=== PATIENT | male | born 1955 | race Caucasian/White ===

== ENCOUNTER 2024-11-10 09:08 | Day surgery (SDC) | payer MEDICARE, OTHER ==
[~2024-11-10 09:08] MED LIST: Acetaminophen 325 MG Tab PO ONE; Lactated Ringers 1,000 ML ONE; Midazolam 1 MG/ML 2 ML SDV ONE; Pregabalin 25 MG Cap PO ONE; Sodium Chloride 0.9% 10 ML Syringe FLUSH PRN; Sodium Chloride 0.9% 10 ML Syringe FLUSH SCH; ceFAZolin 2 GM Vial ONE; oxyCODONE ER 10 MG TAB.ER PO ONE; propofoL 500 MG/50 ML 50 ML ONE
[2024-11-10] MEDS: VANCOmycin 1.25 GM/250 ML 1.25 GM in Premix Bag 1 BAG IV ONE (09:24)
[2024-11-10] MEDS: Lactated Ringers 1,000 ML IV SCH (09:40)
[2024-11-10] MEDS: Acetaminophen 325 MG Tab PO ONE (10:06)
[2024-11-10] MEDS: Pregabalin 25 MG Cap PO ONE (10:06)
[2024-11-10] MEDS: oxyCODONE ER 10 MG TAB.ER PO ONE (10:07)
[2024-11-10 10:11] LABS: INR 1.18; PROTHROMBIN TIME 12.4 SECONDS (9.7-12.0)
[2024-11-10 10:12] LABS: PTT,PARTIAL THROMBOPLSTIN TIME 36.9 SECONDS (21.7-31.4)
[2024-11-10] MEDS ORDERED: Rocuronium 50 MG/5 ML Vial ONE (11:07)
[2024-11-10] MEDS ORDERED: fentaNYL 250 MCG/5 ML SDV ONE (11:07)
[2024-11-10] MEDS ORDERED: dexmedeTOMIDine HCl 200 MCG/2 ML SDV ONE (11:19)
[2024-11-10] MEDS ORDERED: Dexamethasone 4 MG/ML 5 ML MDV ONE (11:42)
[2024-11-10] MEDS ORDERED: Ondansetron 4 MG/2 ML SDV ONE (11:42)
[2024-11-10] MEDS ORDERED: Ketorolac 30 MG/ML SDV ONE (11:42)
[2024-11-10] MEDS ORDERED: ePHEDrine 50 MG/ML SDV ONE (11:42)
[2024-11-10] MEDS ORDERED: HYDROmorphone 0.5 MG/0.5 ML Syringe IVPUSH PRN (11:57)
[2024-11-10] MEDS ORDERED: fentaNYL 100 MCG/2 ML SDV IVPUSH PRN (11:57)
[2024-11-10] MEDS ORDERED: Sugammadex Sodium 200 MG/2 ML VIAL IV ONE (12:32)
[2024-11-10] MEDS: Tranexamic Acid 1,000 MG/10 ML Vial ONE (12:34)
[2024-11-10] MEDS: Morphine 8 MG, EPINEPHrine 0.3 MG, Cefuroxime 750 MG, Ketorolac 30 MG, Sodium Chloride ... PRN (12:34)
[2024-11-10] MEDS: VANCOmycin 1 GM SDV ONE (12:34)
[2024-11-10] MEDS: Acetaminophen/HYDROcodone 325-5 MG Tab PO PRN (14:30)
[2024-11-10] MEDS: Ondansetron 4 MG/2 ML SDV IVPUSH PRN (15:30)
== END 2024-11-10 16:55 | disposition home or self-care (01) ==
LOC: JD.SDS 09:08
PROVIDERS: ATTEND Orthopaedic Surgery
DX: M16.11 Unilateral primary osteoarthritis, right hip (principal); Z88.8 Allergy status to other drugs, medicaments and biological substances; Z79.82 Long term (current) use of aspirin; Z79.01 Long term (current) use of anticoagulants; Z79.899 Other long term (current) drug therapy
CPT/HCPCS: 0055T; 27130; 36415; 73501; 85610; 85730; 97116; 97161; 97530; A9270; C1713; C1776; J0171; J0690; J0697; J1100; J1885; J2250; J2272; J2405; J2704; J3010; J3372; J7120; J3490